=== PATIENT | male | born 1960 | race American Indian/Alaskan Native ===

== ENCOUNTER 2016-05-18 14:22 | Inpatient (IN) | payer OTHER ==
[2016-05-18] MEDS ORDERED: ZOFRAN ONE (14:28)
[2016-05-18] MEDS ORDERED: SUBLIMAZE ONE (14:29)
[2016-05-18] MEDS ORDERED: NITRO-BID 2% TP ONE (14:31)
[2016-05-18] MEDS ORDERED: SUBLIMAZE IV ONE (14:31)
[2016-05-18] MEDS ORDERED: ZOFRAN IV ONE (14:31)
--- NOTE | 2016-05-18 14:43 | Emergency Department Report ---
HPI - General Time Seen by Provider: 05/18/16 14:30 - HPI HPI: Room 4 The patient is a 56-year-old male presenting with a chief complaint of shortness of breath and chest pain. The patient states approximately 2 hours prior to arrival he developed left chest pain and shortness of breath. The patient appears diaphoretic. The patient gives his pain a score of 10/10. The patient states he's never had a cardiac catheterization Location: Left chest Duration: 2 hours Quality: Pain Severity: 10/10 Modifying factors: Unknown Context: [see above] Mode of transportation: [not driving] ED Past Medical Hx - Past Medical History Hx Hypertension: Yes - Surgical History Past Surgical History?: No - Family History Family history: no significant - Social History Smoking Status: Never Smoker Substance Use Type: None ED Review of Systems ROS: Stated complaint: CHEST PAIN Other details as noted in HPI Comment: All other systems reviewed and negative Constitutional: diaphoresis Eyes: denies: eye pain, eye discharge, vision change ENT: denies: ear pain, throat pain Respiratory: shortness of breath Cardiovascular: chest pain Endocrine: no symptoms reported Gastrointestinal: denies: abdominal pain, nausea, diarrhea Genitourinary: denies: urgency, dysuria Musculoskeletal: denies: back pain, joint swelling, arthralgia Skin: denies: rash, lesions Neurological: denies: headache, weakness, paresthesias Psychiatric: denies: anxiety, depression Hematological/Lymphatic: denies: easy bleeding, easy bruising Physical Exam - Physical Exam Physical Exam: GENERAL: The patient is well-developed well-nourished male lying on stretcher appearing to be in acute distress. [] HEENT: Normocephalic. Atraumatic. Extraocular motions are intact. Patient has moist mucous membranes. NECK: Supple. Trachea midline CHEST/LUNGS: Clear to auscultation. There is tachypnea/respiratory distress noted. HEART/CARDIOVASCULAR: Regular. There is no tachycardia. There is no gallop rub or murmur. ABDOMEN: Abdomen is soft, nontender. Patient has normal bowel sounds. There is no abdominal distention. SKIN: There is no rash. There is no edema. There is diaphoresis. NEURO: The patient is awake, alert, and oriented. The patient is cooperative. The patient has normal speech and gait. MUSCULOSKELETAL: There is no evidence of acute injury. ED Medical Decision Making - Lab Data Result diagrams: 05/18/16 14:30 05/18/16 14:30 Laboratory Tests 05/18/16 05/18/16 05/18/16 14:30 14:30 14:30 WBC 5.4 RBC 4.84 Hgb 15.4 H Hct 45.5 MCV 94 MCH 32 MCHC 34 RDW 13.8 Plt Count 288 Lymph % (Auto) 29.7 [place] % (Auto) 10.0 H Eos % (Auto) 0.5 Baso % (Auto) 0.6 Lymph # 1.6 [place] # 0.5 Eos # 0.0 Baso # 0.0 Seg Neutrophils % 59.2 Seg Neutrophils # 3.2 PT 12.4 INR 0.93 APTT 26.4 Potassium 4.3 Carbon Dioxide 20 L BUN 6 L Creatinine 0.8 Estimated GFR > 60 BUN/Creatinine Ratio 7.50 Glucose 109 H Calcium 9.5 Total Creatine Kinase 83 CK-MB (CK-2) Rel Index 1.3 Troponin T < 0.010 - EKG Data -: EKG Interpreted by Me EKG shows normal: sinus rhythm Rate: normal - EKG Data When compared to previous EKG there are: previous EKG unavailable - Radiology Data Radiology results: report reviewed (chest x-ray, CT chest), image reviewed ( chest x-ray, CT chest) interpreted by me: Chest x-ray-no focal infiltrates, no pneumothorax CT chest (read by radiologist)-negative study with technical limitations. Because of the double volume of IV contrast use is recommended that the patient be given moderate increase hydration after this study if clinically appropriate. - Differential Diagnosis ACS, aortic dissection, PE, pericarditis Critical care attestation.: If time is entered above; I have spent that time in minutes in the direct care of this critically ill patient, excluding procedure time. ED Disposition Clinical Impression: Chest pain, Difficulty breathing Disposition: OP ADMITTED IP TO THIS HOSP Is pt being admited?: Yes Does the pt Need Aspirin: Yes Condition: Fair Instructions: Chest Pain (ED) Time of Disposition: 16:45 (hospitalist paged)
--- NOTE | 2016-05-18 14:47 | XRay Report ---
AP CHEST: HISTORY: chest pain AP view of the chest demonstrates a normal mediastinal and cardiac contour with clear lungs and normal bony and soft tissue structures. IMPRESSION: Unremarkable AP chest.
[2016-05-18 14:50] LABS: Basophils % (Auto) 0.6 % (0.0-1.8); Eosinophils % (Auto) 0.5 % (0.0-4.3); Hematocrit 45.5 % (35.5-45.6); Hemoglobin 15.4 gm/dl (11.8-15.2); Mean Corpuscular HGB Conc 34 % (32-34); Mean Corpuscular Hemoglobin 32 pg (28-32); Mean Corpuscular Volume 94 fl (84-94); Platelet Count 288 K/mm3 (140-440); Red Blood Count 4.84 M/mm3 (3.65-5.03); Red Cell Distribution Width 13.8 % (13.2-15.2); White Blood Count 5.4 K/mm3 (4.5-11.0)
[2016-05-18 15:01] LABS: INR 0.93 (0.87-1.13); Partial Thromboplastin Time 26.4 Sec. (24.2-36.6)
[2016-05-18] MEDS ORDERED: MORPHINE IV ONE (15:09)
[2016-05-18 15:16] LABS: Creatine Kinase MB 1.1 ng/mL (0.0-4.0)
[2016-05-18 15:17] LABS: Anion Gap 23 mmol/L; Blood Urea Nitrogen 6 mg/dL (9-20); Calcium 9.5 mg/dL (8.4-10.2); Carbon Dioxide 20 mmol/L (22-30); Chloride 99.9 mmol/L (98-107); Creatine Kinase 83 units/L (55-170); Glucose 109 mg/dL (75-100); Sodium 139 mmol/L (137-145)
[2016-05-18 15:18] LABS: Potassium 4.3 mmol/L (3.6-5.0)
[2016-05-18] MEDS ORDERED: NACL ONE (15:40)
--- NOTE | 2016-05-18 16:39 | Cat Scan Report ---
CT angiography with 3-D reconstructed images. History: Chest pain. Findings: There is suboptimal opacification of the pulmonary arteries despite repeating examination with additional contrast injection. Within these technical limits, there are no filling defects or other signs of pulmonary emboli. The lungs are clear. No pleural fluid is seen. Impression: Negative study with above described technical limitations. Comment: Because of the double volume of intravenous contrast use, is recommended that the patient be given moderate increased hydration after this study if clinically appropriate.
[2016-05-18] MEDS ORDERED: NACL 0.9% 1000 ML 1,000 ML IV ONE (16:44)
[2016-05-18] MEDS ORDERED: ASPIRIN PO ONE (16:47)
[2016-05-18] MEDS ORDERED: MORPHINE ONE (16:53)
--- NOTE | 2016-05-18 21:24 | Event Note ---
Date: 05/18/16 See H/p in reports Chest pain r/o OR HTN
[2016-05-18] MEDS ORDERED: ZOFRAN IV PRN (21:25)
[2016-05-18] MEDS ORDERED: PERCOCET 5/325 PO PRN (21:25)
[2016-05-18] MEDS ORDERED: DULCOLAX PR PRN (21:25)
[2016-05-18] MEDS ORDERED: TYLENOL PO PRN (21:25)
[2016-05-18] MEDS ORDERED: MILK OF MAGNESIA PO PRN (21:25)
[2016-05-18] MEDS ORDERED: SODIUM CHLORIDE FLUSH SYRINGE 10 ML IV PRN (21:29)
[2016-05-18] MEDS: COZAAR PO SCH (23:35)
[2016-05-18 23:58] LABS: Creatine Kinase MB < 1.0 ng/mL (0.0-4.0)
[2016-05-19] LABS: Creatine Kinase 64 units/L (55-170)
[2016-05-19 00:12] LABS: Blood Urea Nitrogen 6 mg/dL (9-20); Calcium 8.5 mg/dL (8.4-10.2); Carbon Dioxide 20 mmol/L (22-30); Chloride 102.3 mmol/L (98-107); Glucose 111 mg/dL (75-100); Potassium 3.6 mmol/L (3.6-5.0); Sodium 139 mmol/L (137-145)
[2016-05-19 00:14] LABS: Anion Gap 20 mmol/L
--- NOTE | 2016-05-19 00:44 | Admit Criteria Form ---
Admission Criteria Documentation: CHEST PAIN Clinical Indications for Admission to Inpatient Care (Place 'X' for any and all applicable criteria): Admission is indicated for chest pain and ANY ONE of the following(1)(2)(3)(4)(5 ): [ ]I. Angina with acute coronary syndrome (Also use Myocardial Infarction or Angina guideline) [ ]II. Hemodynamic instability [ ]III. Angina needing acute intervention as indicated by ALL of the following( 11)(12): [ ]a) Unstable angina is present as indicated by angina that is ANY ONE of the following: [ ]i) New onset [ ]ii) Nocturnal [ ]iii) Prolonged at rest [ ]iv) Progressive [ ]b) Angina warrants acute intervention as indicated by ANY ONE of the following: [ ]i) Recurrent angina (e.g, not responding as previously to treatment) [ ]ii) Angina at rest or with low-level activities despite initial medical therapy [ ]iii) New or presumably new ST-segment depression on ECG [ ]iv) Signs or symptoms of heart failure (eg, dyspnea, pulmonary edema) [ ]v) New or worsening mitral regurgitation [ ]vi) Hemodynamic instability [ ]vii) Dangerous arrhythmia (eg, sustained ventricular tachycardia) [ ]viii) History of percutaneous coronary intervention within 6 months [ ]ix) History of coronary artery bypass graft surgery [ ]x) RICHARD risk score of 2 or greater[A] [ ]xi) History of Diabetes(14) [ ]xii) High-risk cardiac ischemia findings on noninvasive testing (e.g, echocardiogram, treadmill testing, nuclear scan) [ ]xiii) Chronic renal insufficiency (ie, estimated GFR less than 60 mL/min/1.732m) [ ]xiv) Left ventricular ejection fraction less than 40% [ ]IV. Evidence of NM (eg, cardiac biomarkers positive, ST-segment elevation on ECG) also use Myocardial Infarction Criteria Form. [ ]V. Pulmonary edema [X ]. Respiratory distress [ ]VII. Chest pain indicative of serious diagnosis other than coronary artery disease (eg, aortic dissection) [ ]VIII. Contraindications and/or Inappropriate clinical situations for Observational Care in patients with Chest Pain, when ANY ONE of the following is required: [ ]a) Patient with risk factor for pulmonary embolism, acute coronary syndrome and myocardial infarction (18) [ ]b) Patient with Pulmonary embolism require an average LOS of 4.3 days, therefore emergency department observation management is inappropriate 18,23 [ ]c) Painful condition/s in the elderly, have the highest rate of recidivism after emergency department observation management (10.8%) 20,21,22 [ ]d) Elevated cardiac biomarker requires intensive and exhaustive care (19) [ ]IX. General contraindications and/or Inappropriate clinical situations for Observational Care in patients with Chest Pain, when ANY ONE of the following is required: [ ]a) Prediction of prolongation of LOS based on ANY ONE of the following may be considered as a contraindication for observational care 2, 3, 4, 5, 6, 7, 8, 9, 10, 11 [ ]i) Age > 65 yrs. [ ]ii) Patient arriving by ambulance [ ]iii) Patient with high acuity [ ]iv) Patient requiring vital sign monitoring [ ]v) Patient on IV medication [ ]b) Systolic blood pressures 180mmHg 3,12 [ ]c) Patient with altered mental status including delirium and other alteration of consciousness, (3) [ ]d) Patient whose discharge disposition will be to a alf home or rehabilitation home should not be managed in Emergency Department Observation Unit. CMS rule requires 3 days hospital stay before such placement. 3,13 [ ]e) Patient with failure to thrive due to broad array of etiologies 3,16,17 [ ]f) Inability to ambulate 3,14 Extended stay beyond goal length of stay may be needed for (1)(28): [ ]a) Specific condition diagnosed after evaluation (eg, pulmonary embolism, aortic dissection) [ ]b) Unstable angina [ ]c) Continued suspicion of acute coronary syndrome with inability to complete needed cardiac evaluation (eg, patient clinically unable to undergo stress testing) [ ]d) Myocardial infarction (Contents from ANGINA and CHEST PAIN clinical indications for admission to inpatient care have been integrated in this form) The original [facility] content created by [employer] has been revised. The portions of the content which have been revised are identified through the use of italic text or in bold, and [facility] [employer] has neither reviewed nor approved the modified material. All other unmodified content is copyright [facility]. Please see references footnoted in the original [facility] edition 2016 Admission Criteria Met: Yes
[2016-05-19] MEDS ORDERED: BENADRYL IV ONE (01:30)
[2016-05-19 06:06] LABS: Basophils % (Auto) 0.8 % (0.0-1.8); Eosinophils % (Auto) 1.8 % (0.0-4.3); Hematocrit 40.6 % (35.5-45.6); Hemoglobin 13.5 gm/dl (11.8-15.2); Mean Corpuscular HGB Conc 33 % (32-34); Mean Corpuscular Hemoglobin 31 pg (28-32); Mean Corpuscular Volume 94 fl (84-94); Platelet Count 261 K/mm3 (140-440); Red Cell Distribution Width 13.5 % (13.2-15.2); White Blood Count 5.1 K/mm3 (4.5-11.0)
[2016-05-19 06:19] LABS: Creatine Kinase MB < 1.0 ng/mL (0.0-4.0)
[2016-05-19 06:21] LABS: Creatine Kinase 64 units/L (55-170)
[2016-05-19 06:24] LABS: Alanine Aminotransferase 14 units/L (7-56); Albumin/Globulin Ratio 1.6 %; Alkaline Phosphatase 50 units/L (35-129); Bilirubin,Total 0.5 mg/dL (0.1-1.2); Blood Urea Nitrogen 8 mg/dL (9-20); Calcium 8.6 mg/dL (8.4-10.2); Carbon Dioxide 22 mmol/L (22-30); Chloride 104.3 mmol/L (98-107); Glucose 118 mg/dL (75-100); Potassium 4.1 mmol/L (3.6-5.0); Sodium 142 mmol/L (137-145); Total Protein 6.5 g/dL (6.3-8.2)
[2016-05-19 06:26] LABS: Anion Gap 20 mmol/L
[2016-05-19] MEDS ORDERED: LEXISCAN IV ONE (08:49)
--- NOTE | 2016-05-19 09:48 | History and Physical Report ---
CHIEF COMPLAINT: Chest pain since two hours prior to arrival. HISTORY OF PRESENT ILLNESS: A 56-year-old male who presents with chest pain and shortness of breath for two hours' duration. The patient appears diaphoretic. Pain is about 10 on a scale of 1-10. Pain localized to the left side of the chest and not radiating. No catheterization or no cardiac history in the past. History of hypertension present. PAST MEDICAL HISTORY: As mentioned hypertension. PAST SURGICAL HISTORY: None. FAMILY HISTORY: No significant family history. SOCIAL HISTORY: Does not smoke. No alcohol, no recreational drugs. REVIEW OF SYSTEMS: CONSTITUTIONAL: Diaphoresis. HEENT: No sore throat. No postnasal drip. CARDIOVASCULAR AND RESPIRATORY: Left-sided chest pain and shortness of breath. GASTROINTESTINAL: No nausea, no vomiting, no diarrhea. MUSCULOSKELETAL: No joint pains. GENITOURINARY: No dysuria, no flank pain. CENTRAL NERVOUS SYSTEM: No syncope, no seizures. SKIN: No rashes. PSYCHIATRIC: No anxiety, no depression. HEMATOLOGIC/LYMPHATIC: No easy bruising. A 14-point review of systems was done. PHYSICAL EXAMINATION: GENERAL: Middle-aged male, cooperative during examination. VITAL SIGNS: Blood pressure is 168/88, temperature is 97.6, pulse is 59, respirations are 20. HEENT: Unremarkable. Pupils equal and reactive. NECK: Supple, no lymphadenopathy, no thyromegaly. LUNGS: Clear to auscultation and percussion. Good air entry. CARDIOVASCULAR: S1, S2 heard. No gallop, no murmur, no rub. Apical impulse in the left fifth intercostal space and midclavicular line. ABDOMEN: Soft and benign. No hepatosplenomegaly. No guarding, no rigidity. Hernial orifices are normal. EXTREMITIES: Good pedal pulses. No pedal edema. CENTRAL NERVOUS SYSTEM: Alert and oriented x4, nonfocal exam. SKIN: Normal. LABORATORY DATA: White count is 5700, H and H is 15.4 and 45.5, platelet count is 288,000, bicarbonate is 20, glucose is 109. LFTs are normal. Cardiac enzymes are 83 and troponin is less than 1010. EKG shows normal sinus rhythm, no ST-T changes. Heart rate of 80 per minute. Chest x-ray: No focal infiltrates. No pneumothorax. CT of the chest negative. ASSESSMENT AND PLAN: 1. Acute coronary syndrome. The patient to get serial cardiac enzymes and Lexiscan. 2. Hypertension. Continue losartan. Contrast complications and the patient needs IV fluids. 3. Deep venous thrombosis prophylaxis, Lovenox 40 mg subcutaneous daily. JOB# [id number] VSM/NTS
[2016-05-19] MEDS: COZAAR PO SCH (10:21)
--- NOTE | 2016-05-19 10:42 | Discharge Summary ---
Providers - Providers Date of Admission: 05/18/16 17:44 Date of discharge: 05/19/16 Attending physician: PARAS DOWNING MD 05/18/16 Consult to Cardiac Rehabilitation [CONS] Routine Reason For Exam: Phase I Primary care physician: TRANSPLANT REGISTERED NURSE Hospitalization Reason for admission: chest pain Condition: Stable Hospital course: Patient is a 56-year-old female who presented to the hospital complaining of chest pain or shortness of breath duration. Rated the pain at 10 over 10 intensity. Her symptom resolved remarkably. She did proceed to have a stress test was negative. He is currently stable at this time for discharge. She had a CTA that was reported negative. Discharge diagnosis Atypical chest pain likely costochondritis Essential hypertension Disposition: DISCHARGED TO HOME OR SELFCARE Time spent for discharge: 35 mins Core Measure Documentation - Palliative Care Palliative Care/ Comfort Measures: Not Applicable - Core Measures Any of the following diagnoses?: none - VTE Discharge Requirements Deep Vein Thrombosis/Pulmonary Embolism Present on Admission: No Exam - Physical Exam Narrative exam: VITAL SIGNS: Reviewed. GENERAL: The patient appeared well nourished and normally developed. Vital signs as documented. HEAD: No signs of head trauma. EYES: Pupils are equal. Extraocular motions intact. EARS: Hearing grossly intact. MOUTH: Oropharynx is normal. NECK: No adenopathy, no JVD. CHEST: Chest with clear breath sounds bilaterally. No wheezes, rales, or rhonchi. CARDIAC: Regular rate and rhythm. S1 and S2, without murmurs, gallops, or rubs. VASCULAR: No Edema. Peripheral pulses normal and equal in all extremities. ABDOMEN: Soft, without detectable tenderness. No sign of distention. No rebound or guarding, and no masses palpated. Bowel Sounds normal. MUSCULOSKELETAL: Good range of motion of all major joints. Extremities without clubbing, cyanosis or edema. NEUROLOGIC EXAM: Alert and oriented x 3. No focal sensory or strength deficits. Speech normal. Follows commands. PSYCHIATRIC: Mood normal. SKIN: No rash or lesions. - Constitutional Vitals: Temp Pulse Resp BP Pulse Ox 98.8 F 72 18 159/81 100 05/19/16 08:28 05/19/16 10:30 05/19/16 10:30 05/19/16 08:28 05/19/16 08:28 Plan Activity: advance as tolerated, fall precautions Diet: low cholesterol, low salt Special Instructions: record daily BP diary Follow up with: [facility] [Provider Group] - 7 Days PRIMARY CARE, [Primary Care Provider] - 7 Days Prescriptions: Losartan [Cozaar] 50 mg PO QDAY #30 tablet
[2016-05-19] MEDS ORDERED: PNEUMOVAX 23 IM ONE (12:00)
[2016-05-19] MEDS ORDERED: FLUARIX QUAD 2016-2017(36 MOS+) IM ONE (12:00)
[2016-05-19 12:14] VITALS: BP 134/77
--- NOTE | 2016-05-19 22:39 | Treadmill Report ---
STRESS TEST INDICATION: Chest pain. ORDERING PHYSICIAN: Kateryna Hamlin MD FINDINGS: There is no scintigraphic evidence of myocardial ischemia. The left ventricle is normal in size and systolic function. The left ventricular ejection fraction is measured at 72%. Normal wall motion and wall thickening is noted on gated imaging. CONCLUSION: Normal perfusion scan. JOB# [id number] AKNancy/NTS
[2016-05-20] MEDS ORDERED: LOVENOX SUB-Q SCH (10:00)
== END 2016-05-19 11:57 | disposition home or self-care (01) | DRG 206 ==
LOC: ED 14:22 → 4A 17:44
PROVIDERS: ADMIT Internal Medicine; ATTEND Internal Medicine
DX: M94.0 Chondrocostal junction syndrome [Tietze] (principal); I24.9 Acute ischemic heart disease, unspecified; I10 Essential (primary) hypertension; Z88.0 Allergy status to penicillin
CPT/HCPCS: 36415; 71010; 71275; 78452; 80048; 80053; 82550; 82553; 83880; 84484; 85025; 85610; 85730; 90686; 90732; 93005; 93010; 93017; 94760; 96361; 96374; 96375; A9502; J1200; J2270; J2405; J2785; J3010; J7030; Q9967

== ENCOUNTER 2016-10-25 16:12 | Emergency (ER) | payer SELFPAY ==
[2016-10-25 16:26] VITALS: BP 146/78
--- NOTE | 2016-10-25 20:10 | Emergency Department Report ---
ED Medical Clearance HPI - General Chief complaint: Pain General Stated complaint: POSSIBLE BODY FLUID EXPOSURE Time Seen by Provider: 10/25/16 19:37 Source: patient Mode of arrival: Ambulatory - History of Present Illness Initial comments: 56-year-old male past medical history hypertension presents with complaint of body fluid exposure. Patient states that he was at a clinic donating plasma 8 days ago on October 17. Patient states that he was sitting next to another person who was donating blood. Patient states that somehow blood spurted from the other persons IV catheter onto his right flank on the skin. Patient denies any exposure of blood to his eyes or mouth. Patient states that he is unaware of this other individual's HIV or hepatitis status. Patient states that he attempted to speak to textile machinery sales representative as of this clinic but he did not find that they were helpful. Patient is telling me that he is coming to the ER primarily for documentation that he was exposed to this unknown persons blood. Patient denies any fevers chills nausea or vomiting states that his skin felt slightly itchy on his flank. Patient states he washed it off immediately after exposure. Patient has not been placed on any form of post exposure prophylactic medicine. Onset/Timin -: days(s) Reason for Medical Clearance: other (body fluid exposure) Place: other (plasma donation/blood donation clinic) Home medications: Previous Rx's Medication Instructions Recorded Last Taken Type Losartan [Cozaar] 50 mg PO QDAY #30 tablet 05/19/16 Unknown Rx Allergies/Adverse reactions: Allergies Allergy/AdvReac Type Severity Reaction Status Date / Time Penicillins Allergy Unknown Verified 05/18/16 14:35 ED Review of Systems ROS: Stated complaint: POSSIBLE BODY FLUID EXPOSURE Other details as noted in HPI Constitutional: denies: chills, fever Eyes: denies: eye pain, eye discharge, vision change ENT: denies: ear pain, throat pain Respiratory: denies: cough, shortness of breath, wheezing Cardiovascular: denies: chest pain, palpitations Endocrine: no symptoms reported Gastrointestinal: denies: abdominal pain, nausea, diarrhea Genitourinary: denies: urgency, dysuria Musculoskeletal: denies: back pain, joint swelling, arthralgia Skin: denies: rash, lesions Neurological: denies: headache, weakness, paresthesias Psychiatric: denies: anxiety, depression Hematological/Lymphatic: denies: easy bleeding, easy bruising ED Past Medical Hx - Past Medical History Previous Medical History?: Yes Hx Hypertension: Yes Hx Congestive Heart Failure: No Hx Diabetes: No Hx Asthma: No Hx COPD: No Additional medical history: "heart strain" - Surgical History Past Surgical History?: Yes Additional Surgical History: Right hand surgery - Social History Smoking Status: Former Smoker Substance Use Type: Prescribed - Medications Home Medications: Home Medications Medication Instructions Recorded Confirmed Last Taken Type Losartan [Cozaar] 50 mg PO QDAY #30 tablet 05/19/16 Unknown Rx ED Physical Exam - General Limitations: No Limitations General appearance: alert, in no apparent distress - Head Head exam: Present: atraumatic, normocephalic - Eye Eye exam: Present: normal appearance, PERRL, EOMI - ENT ENT exam: Present: mucous membranes moist - Neck Neck exam: Present: normal inspection - Respiratory Respiratory exam: Present: normal lung sounds bilaterally. Absent: respiratory distress - Cardiovascular Cardiovascular Exam: Present: regular rate, normal rhythm. Absent: systolic murmur, diastolic murmur, rubs, gallop - GI/Abdominal GI/Abdominal exam: Present: soft, normal bowel sounds - Rectal Rectal exam: Present: deferred - Extremities Exam Extremities exam: Present: normal inspection - Back Exam Back exam: Present: normal inspection - Neurological Exam Neurological exam: Present: alert, oriented X3 - Psychiatric Psychiatric exam: Present: normal affect, normal mood - Skin Skin exam: Present: warm, dry, intact, normal color. Absent: rash ED Course Vital Signs 10/25/16 16:22 Temperature 97.9 F Pulse Rate 81 Respiratory 18 Rate Blood Pressure 146/78 O2 Sat by Pulse 99 Oximetry ED Medical Decision Making - Medical Decision Making A/P: Body fluid exposure, cutaneous blood exposure 1-as per up-to-date.com the likelihood of HIV transmission via cutaneous exposure alone with intact skin is nearly negligible https://www.cdc.gov/[place]/ pdfs/bbp/exp_to_blood.pdf https://www.[employer]/contents/pre-exposure- ilybdzjtdrr-mptktwh-wuc-infection?source=[employer]&search=hiv%20exposure% 20type&selectedTitle=2~150&sectionRank=1&urrgte=[id number] 2- patient is out of the suggested window for post exposure prophylaxis antiretroviral medicines for HIV. Exposure occurred 8 days ago. I discussed the utility of using these medicines with the patient and the patient elected to not use them at this time. I discussed the risks and benefits of postexposure prophylaxis with the patient and gave him literature on this from the cdc: https://www.cdc.gov/[place]/pdfs/bbp/exp_to_blood.pdf 3-I will give patient follow up with primary care and infectious disease. I followed [facility] nonemployee expose person protocol A hospital protocol for exposure to bodily fluids. I was presented this protocol by the charge nurse Mr. Dillard. As per protocol I will give follow-up with a primary care doctor 4- Case d/w Dr. De Paz ED Disposition Clinical Impression: Patient exposure to body fluids Disposition: DC-01 TO HOME OR SELFCARE Is pt being admited?: No Does the pt Need Aspirin: No Condition: Stable Instructions: Postexposure Prophylaxis (ED), Body Substance Exposure (ED) Referrals: BEATRIS JAEGER MD [Staff Physician] - 3-5 Days JAGUAR CARRASCO MD [Staff Physician] - 3-5 Days [facility] [Outside] - 3-5 Days Forms: Accompanied Note, Work/School Release Form(ED) Time of Disposition: 20:11
== END 2016-10-25 20:23 | disposition home or self-care (01) ==
LOC: ED 16:12
DX: Z77.21 Contact with and (suspected) exposure to potentially hazardous body fluids (principal); I10 Essential (primary) hypertension; Z87.891 Personal history of nicotine dependence
CPT/HCPCS: 99281

== ENCOUNTER 2018-01-24 12:46 | Emergency (ER) | payer SELFPAY ==
[2018-01-24 14:10] LABS: Basophils % (Auto) 0.8 % (0.0-1.8); Eosinophils # (Auto) 0.1 K/mm3 (0.0-0.4); Hemoglobin 14.9 gm/dl (11.8-15.2); Lymphocytes % (Auto) 36.9 % (13.4-35.0); Mean Corpuscular HGB Conc 34 % (32-34); Mean Corpuscular Hemoglobin 32 pg (28-32); Mean Corpuscular Volume 95 fl (84-94); Monocytes # (Auto) 0.6 K/mm3 (0.0-0.8); Monocytes % (Auto) 11.8 % (0.0-7.3); Platelet Count 314 K/mm3 (140-440); Red Blood Count 4.61 M/mm3 (3.65-5.03); Red Cell Distribution Width 13.3 % (13.2-15.2)
[2018-01-24 14:18] LABS: INR 0.97 (0.87-1.13)
[2018-01-24 14:19] LABS: Partial Thromboplastin Time 26.2 Sec. (24.2-36.6)
[2018-01-24 14:29] LABS: BUN/Creatinine Ratio 10; Blood Urea Nitrogen 10 mg/dL (9-20); Calcium 9.7 mg/dL (8.4-10.2); Hemolysis Index 11
--- NOTE | 2018-01-24 15:33 | Emergency Department Report ---
ED Chest Pain HPI - General Chief Complaint: Chest Pain Stated Complaint: CHEST PAIN Time Seen by Provider: 01/24/18 14:57 Source: patient, family Mode of arrival: Wheelchair Limitations: No Limitations - History of Present Illness Initial Comments: 57-year-old -[place] male presents to the emergency department home with complaint of sharp left-sided chest pains that occur intermittently that has been going on for a few weeks. At night patient has some moderate to severe diaphoresis. He also complains of some numbness in the hands and toes. He denies any nausea, vomiting, shortness of breath, back pain, headache, vision change or any slurred speech. The chest pain sometimes will radiate towards his left shoulder and his back. He denies any tobacco use or illicit drug use. He is a past medical history of hypertension. He does not have a primary care physician or glass curvature gauger. He last had a stress test about 1 year ago. No recent travel or sick contacts at home. - Related Data Home Medications Medication Instructions Recorded Confirmed Last Taken Ibuprofen [Advil 100 MG tab] 100 mg PO DAILY 01/24/18 01/24/18 Unknown Losartan [Cozaar] 50 mg PO DAILY 01/24/18 01/24/18 Unknown Ranitidine HCl [Zantac 150 MG TAB] 150 mg PO DAILY 01/24/18 01/24/18 Unknown Allergies Allergy/AdvReac Type Severity Reaction Status Date / Time Penicillins Allergy Unknown Verified 05/18/16 14:35 Heart Score - HEART Score History: Moderately suspicious EKG: Normal Age: 45-65 Risk factors: 1-2 risk factors Troponin: < normal limit HEART Score: 3 - Critical Actions Critical Actions: 0-3 pts:0.9-1.7%risk of adverse cardiac event.Candidate for discharge ED Review of Systems ROS: Stated complaint: CHEST PAIN Other details as noted in HPI Comment: All other systems reviewed and negative Constitutional: denies: chills, fever Eyes: denies: eye pain, eye discharge, vision change ENT: denies: ear pain, throat pain Respiratory: denies: cough, shortness of breath, wheezing Cardiovascular: chest pain. denies: palpitations Gastrointestinal: denies: nausea, vomiting Genitourinary: denies: urgency, dysuria Musculoskeletal: back pain. denies: joint swelling Skin: denies: rash, lesions Neurological: numbness. denies: headache ED Past Medical Hx - Past Medical History Previous Medical History?: Yes Hx Hypertension: Yes Hx Congestive Heart Failure: No Hx Diabetes: No Hx Arthritis: Yes Hx Asthma: No Hx COPD: No Additional medical history: "heart strain" - Surgical History Past Surgical History?: Yes Additional Surgical History: Right hand surgery. left foot surgery - Social History Smoking Status: Former Smoker Substance Use Type: None - Medications Home Medications: Home Medications Medication Instructions Recorded Confirmed Last Taken Type Ibuprofen [Advil 100 MG tab] 100 mg PO DAILY 01/24/18 01/24/18 Unknown History Losartan [Cozaar] 50 mg PO DAILY 01/24/18 01/24/18 Unknown History Ranitidine HCl [Zantac 150 MG TAB] 150 mg PO DAILY 01/24/18 01/24/18 Unknown History ED Physical Exam - General Limitations: No Limitations ED Course Vital Signs 01/24/18 01/24/18 01/24/18 13:20 15:10 15:16 Temperature 98 F Pulse Rate 69 58 L 65 Respiratory 18 13 8 L Rate Blood Pressure 162/80 O2 Sat by Pulse 100 Oximetry 01/24/18 01/24/18 01/24/18 15:30 15:46 15:51 Temperature 98.1 F Pulse Rate 68 53 L Respiratory 12 12 Rate Blood Pressure 161/88 O2 Sat by Pulse Oximetry 01/24/18 01/24/18 01/24/18 16:00 16:16 16:30 Temperature Pulse Rate 61 63 65 Respiratory 11 L 11 L 12 Rate Blood Pressure 151/88 161/88 161/88 O2 Sat by Pulse Oximetry 01/24/18 01/24/18 01/24/18 16:46 17:00 17:16 Temperature Pulse Rate 61 70 67 Respiratory 12 14 10 L Rate Blood Pressure 151/88 151/88 134/66 O2 Sat by Pulse Oximetry 01/24/18 01/24/18 01/24/18 17:30 17:46 18:00 Temperature Pulse Rate 61 63 83 Respiratory 10 L 17 16 Rate Blood Pressure 134/66 134/66 133/82 O2 Sat by Pulse Oximetry 01/24/18 18:16 Temperature Pulse Rate 65 Respiratory 11 L Rate Blood Pressure 133/82 O2 Sat by Pulse Oximetry RICHARD score - Richard Score Age > 65: (0) No Aspirin use within the Past 7 Days: (0) No 3 or more CAD Risk Factors: (0) No 2 or more Angina events in past 24 hrs: (1) Yes Known CAD with more than 50% Stenosis: (0) No Elevated Cardiac Markers: (0) No ST Deviation Greater than 0.5mm: (0) No RICHARD Score: 1 ED Medical Decision Making - Lab Data Result diagrams: 01/24/18 13:30 01/24/18 13:30 - EKG Data -: EKG Interpreted by Me EKG shows normal: sinus rhythm, axis, intervals, QRS complexes, ST-T waves Rate: normal - EKG Data When compared to previous EKG there are: previous EKG unavailable Interpretation: normal EKG - Radiology Data Radiology results: image reviewed interpreted by me: Chest x-ray does not show any acute process. There are no pleural effusions, obvious pneumonia and there is no pneumothorax. - Medical Decision Making This patient presents with intermittent left-sided chest pains. He has the cardiac risk factors of his age and hypertension. Patient is not had a stress test in about one year. EKG does not show any signs of ST elevation IN or significant dysrhythmia. Chest x-ray does not show any acute process. The patient does not have any close follow-up with primary care or cardiology at this time. Since he continues to have intermittent left-sided chest pains with these cardiac risk factors and no close follow-up, it is my plan to admit the patient to the hospital for further evaluation and treatment. The patient will be presented to the admitting hospitalist, Dr Zuluaga. - Differential Diagnosis PE, IN, costochondritis, pneumonia, GERD Critical Care Time: No Critical care attestation.: If time is entered above; I have spent that time in minutes in the direct care of this critically ill patient, excluding procedure time. ED Disposition Clinical Impression: Chest pain Qualifiers: Chest pain type: unspecified Qualified Code(s): R07.9 - Chest pain, unspecified Hypertension Qualifiers: Hypertension type: essential hypertension Qualified Code(s): I10 - Essential ( primary) hypertension Disposition: OP ADMIT IP TO THIS HOSP Is pt being admited?: Yes Condition: Stable Instructions: Chest Pain (ED), Hypertension (ED) Time of Disposition: 19:45
--- NOTE | 2018-01-24 15:52 | XRay Report ---
FINAL REPORT PROCEDURE: Portable chest x-ray TECHNIQUE: Chest radiograph portable AP view. CPT 82321 HISTORY: Chest pain COMPARISON: No prior studies are available for comparison. FINDINGS: Heart: Magnified due to projection, appears to be normal size.. Mediastinum/Vessels: Normal. Lungs/Pleural space: Clear.. Bony thorax: No acute osseous abnormality. Life support devices: None. IMPRESSION: Negative exam..
[2018-01-24 18:24] VITALS: BP 133/82
[2018-01-24] MEDS ORDERED: CARAFATE PO ONE (18:59)
[2018-01-24] MEDS ORDERED: PROTONIX IV ONE (19:00)
== END 2018-01-24 21:00 | disposition admitted as inpatient to this hospital (09) ==
LOC: ED 12:46
DX: R07.89 Other chest pain (principal); I10 Essential (primary) hypertension; M19.90 Unspecified osteoarthritis, unspecified site; Z87.891 Personal history of nicotine dependence; Z88.0 Allergy status to penicillin
CPT/HCPCS: 36415; 71045; 80048; 83690; 84484; 85025; 85379; 85610; 85730; 93005; 93010; 99284; C9113

== ENCOUNTER 2018-11-15 17:49 | Emergency (ER) | payer SELFPAY ==
--- NOTE | 2018-11-15 17:59 | Event Note ---
ED Screening Note Date of service: 11/15/18 Time: 17:56 ED Screening Note: This is a 58 y.o. M. that presents to the ER with with cramping to right thigh since yesterday. Reports pain is intermittent and non-radiating. PMH of HTN This initial assessment/diagnostic orders/clinical plan/treatment(s) is/are subject to change based on patients health status, clinical progression and re- assessment by fellow clinical providers in the ED. Further treatment and workup at subsequent clinical providers discretion. Patient/guardian urged not to elope from the ED as their condition may be serious if not clinically assessed and managed. Initial orders include:
[2018-11-15 18:09] VITALS: BP 173/77
--- NOTE | 2018-11-15 18:18 | Emergency Department Report ---
ED Extremity Problem HPI - General Chief complaint: Extremity Problem,Nontraumatic Stated complaint: R LEG PAIN Time Seen by Provider: 11/15/18 17:56 Source: patient Mode of arrival: Ambulatory Limitations: No Limitations - History of Present Illness Initial comments: This is a 58 y.o. M. that presents to the ER with with cramping to right thigh since yesterday. Reports pain is intermittent and non-radiating. PMH of HTN MD Complaint: extremity pain (cramping to right thign) Onset/Timin -: days(s) Location: right, other (thigh) History of Same: No -: Yes myalgia Quality: other (cramping) - Related Data Home Medications Medication Instructions Recorded Confirmed Last Taken Ibuprofen [Advil 100 MG tab] 100 mg PO DAILY 01/24/18 01/24/18 Unknown Losartan [Cozaar] 50 mg PO DAILY 01/24/18 01/24/18 Unknown raNITIdine HCl [Zantac 150 MG TAB] 150 mg PO DAILY 01/24/18 01/24/18 Unknown Previous Rx's Medication Instructions Recorded Last Taken Type Pantoprazole [Protonix] 40 mg PO QDAY #30 tablet 01/24/18 Unknown Rx Sucralfate [Carafate] 1 gm PO ACHS #30 tablet 01/24/18 Unknown Rx Ibuprofen [Motrin 800 MG tab] 800 mg PO Q8HR PRN #30 tablet 11/15/18 Unknown Rx amLODIPine [Norvasc] 5 mg PO DAILY #30 tab 11/15/18 Unknown Rx Allergies Allergy/AdvReac Type Severity Reaction Status Date / Time Penicillins Allergy Unknown Verified 05/18/16 14:35 ED Review of Systems ROS: Stated complaint: R LEG PAIN Other details as noted in HPI ED Past Medical Hx - Past Medical History Hx Hypertension: Yes Hx Congestive Heart Failure: No Hx Diabetes: No Hx Arthritis: Yes Hx Asthma: No Hx COPD: No Additional medical history: "heart strain" - Surgical History Additional Surgical History: Right hand surgery. left foot surgery - Social History Smoking Status: Never Smoker Substance Use Type: None - Medications Home Medications: Home Medications Medication Instructions Recorded Confirmed Last Taken Type Ibuprofen [Advil 100 MG tab] 100 mg PO DAILY 01/24/18 01/24/18 Unknown History Losartan [Cozaar] 50 mg PO DAILY 01/24/18 01/24/18 Unknown History Pantoprazole [Protonix] 40 mg PO QDAY #30 tablet 01/24/18 Unknown Rx Sucralfate [Carafate] 1 gm PO ACHS #30 tablet 01/24/18 Unknown Rx raNITIdine HCl [Zantac 150 MG TAB] 150 mg PO DAILY 01/24/18 01/24/18 Unknown History Ibuprofen [Motrin 800 MG tab] 800 mg PO Q8HR PRN #30 tablet 11/15/18 Unknown Rx amLODIPine [Norvasc] 5 mg PO DAILY #30 tab 11/15/18 Unknown Rx ED Physical Exam - General Limitations: No Limitations General appearance: alert, in no apparent distress - Head Head exam: Present: atraumatic, normocephalic - Eye Eye exam: Present: normal appearance - ENT ENT exam: Present: mucous membranes moist - Neck Neck exam: Present: normal inspection - Expanded Lower Extremity Exam Right Hip exam: Present: full ROM Upper Leg exam: Present: full ROM, tenderness. Absent: swelling Knee exam: Present: normal inspection, full ROM. Absent: tenderness Lower Leg exam: Present: normal inspection. Absent: full ROM Ankle exam: Present: normal inspection. Absent: full ROM - Neurological Exam Neurological exam: Present: alert, oriented X3 - Psychiatric Psychiatric exam: Present: normal affect, normal mood - Skin Skin exam: Present: warm, dry, intact, normal color. Absent: rash ED Course Vital Signs 11/15/18 11/15/18 11/15/18 17:56 18:08 18:38 Temperature 98.2 F Pulse Rate 64 Respiratory 16 18 Rate Blood Pressure 169/142 Blood Pressure 173/77 [Left] O2 Sat by Pulse 100 Oximetry ED Medical Decision Making - Radiology Data Radiology results: report reviewed Patient: CARROL COOMBS MR#: [id number] : 1960 Acct:[id number] Age/Sex: 58 / M ADM Date: 11/15/18 Loc: ED Attending Dr: Ordering Physician: ISRA BALDERRAMA Date of Service: 11/15/18 Procedure(s): XR femur 1V RT Accession Number(s): [id number] cc: ISRA BALDERRAMA Fluoro Time In Minutes: Examination: Right femur, one view, 11/15/2018 Clinical information: Right leg pain. Comparison: None. Findings: There is no evidence of acute bony fracture of the right femur. No significant soft tissue swelling is identified. Signer Name: Margoth Orozco MD Signed: 11/15/2018 7:22 PM Workstation Name: [id number] Transcribed By: ALEXANDER Dictated By: Margoth Orozco MD Electronically Authenticated By: Margoth Orozco MD Signed Date/Time: 11/15/181921 DD/ 20 TD/TT: - Medical Decision Making This is a 58 y.o. M. that presents to the ER with with cramping to right thigh since yesterday. Reports pain is intermittent and non-radiating. PMH of HTN History of right thigh has been ordered as well as Toradol 30 mg IM for pain management. As noted the patient had an elevated blood pressure of 169/142. Patient does admit to having hypertension but has stopped taking medications as he felt that life style changes would improved his blood pressure. Patient currently does not have a primary care provider. Patient x-ray is negative. Will start Amlodipine 5mg daily. Ibuprofen 800 mg tid prn. Critical care attestation.: If time is entered above; I have spent that time in minutes in the direct care of this critically ill patient, excluding procedure time. ED Disposition Clinical Impression: Acute thigh pain, HTN, goal below 130/80 Disposition: - TO HOME OR SELFCARE Is pt being admited?: No Does the pt Need Aspirin: No Condition: Stable Instructions: Hypertension (ED) Additional Instructions: Xrays are negative for any acute problem. Take blood pressure as prescribed, follow up with a primary care provider. Prescriptions: Ibuprofen [Motrin 800 MG tab] 800 mg PO Q8HR PRN #30 tablet PRN Reason: Pain , Severe (7-10) amLODIPine [Norvasc] 5 mg PO DAILY #30 tab Referrals: [facility] [Outside] - 3-5 Days [facility] [Outside] - 3-5 Days Forms: Work/School Release Form(ED)
[2018-11-15] MEDS ORDERED: TORADOL IM ONE (18:28)
--- NOTE | 2018-11-15 18:30 | Emergency Department Report ---
ED Extremity Problem HPI - General Chief complaint: Extremity Problem,Nontraumatic Stated complaint: R LEG PAIN Time Seen by Provider: 11/15/18 17:56 Source: patient Mode of arrival: Ambulatory Limitations: No Limitations - History of Present Illness Location: right, other (thigh) History of Same: No Quality: other (cramping) - Related Data Home Medications Medication Instructions Recorded Confirmed Last Taken Ibuprofen [Advil 100 MG tab] 100 mg PO DAILY 01/24/18 01/24/18 Unknown Losartan [Cozaar] 50 mg PO DAILY 01/24/18 01/24/18 Unknown raNITIdine HCl [Zantac 150 MG TAB] 150 mg PO DAILY 01/24/18 01/24/18 Unknown Previous Rx's Medication Instructions Recorded Last Taken Type Pantoprazole [Protonix] 40 mg PO QDAY #30 tablet 01/24/18 Unknown Rx Sucralfate [Carafate] 1 gm PO ACHS #30 tablet 01/24/18 Unknown Rx Allergies Allergy/AdvReac Type Severity Reaction Status Date / Time Penicillins Allergy Unknown Verified 05/18/16 14:35 ED Review of Systems ROS: Stated complaint: R LEG PAIN Other details as noted in HPI ED Past Medical Hx - Past Medical History Hx Hypertension: Yes Hx Congestive Heart Failure: No Hx Diabetes: No Hx Arthritis: Yes Hx Asthma: No Hx COPD: No Additional medical history: "heart strain" - Surgical History Additional Surgical History: Right hand surgery. left foot surgery - Social History Smoking Status: Never Smoker Substance Use Type: None - Medications Home Medications: Home Medications Medication Instructions Recorded Confirmed Last Taken Type Ibuprofen [Advil 100 MG tab] 100 mg PO DAILY 01/24/18 01/24/18 Unknown History Losartan [Cozaar] 50 mg PO DAILY 01/24/18 01/24/18 Unknown History Pantoprazole [Protonix] 40 mg PO QDAY #30 tablet 01/24/18 Unknown Rx Sucralfate [Carafate] 1 gm PO ACHS #30 tablet 01/24/18 Unknown Rx raNITIdine HCl [Zantac 150 MG TAB] 150 mg PO DAILY 01/24/18 01/24/18 Unknown History ED Physical Exam - General Limitations: No Limitations ED Course Vital Signs 11/15/18 11/15/18 17:56 18:08 Temperature 98.2 F Pulse Rate 64 Respiratory 16 Rate Blood Pressure 169/142 Blood Pressure 173/77 [Left] O2 Sat by Pulse 100 Oximetry Critical care attestation.: If time is entered above; I have spent that time in minutes in the direct care of this critically ill patient, excluding procedure time. ED Disposition Condition: Stable
--- NOTE | 2018-11-15 19:27 | XRay Report ---
Examination: Right femur, one view, 11/15/2018 Clinical information: Right leg pain. Comparison: None. Findings: There is no evidence of acute bony fracture of the right femur. No significant soft tissue swelling is identified. Signer Name: Margoth Orozco MD Signed: 11/15/2018 7:22 PM Workstation Name: [id number]
== END 2018-11-15 19:52 | disposition home or self-care (01) ==
LOC: ED 17:49
DX: M79.651 Pain in right thigh (principal); I10 Essential (primary) hypertension; M19.90 Unspecified osteoarthritis, unspecified site; Z79.899 Other long term (current) drug therapy; Z88.0 Allergy status to penicillin
CPT/HCPCS: 73551; 96372; 99283; J1885

== ENCOUNTER 2019-07-24 20:50 | Emergency (ER) | payer OTHER ==
[2019-07-24 21:13] VITALS: BP 175/72
== END 2019-07-24 22:02 | disposition left against medical advice (07) ==
LOC: ED 20:50
DX: Z04.1 Encounter for examination and observation following transport accident (principal); Z53.21 Procedure and treatment not carried out due to patient leaving prior to being seen by health care provider